=== PATIENT | female | born 1970 | race Caucasian/White ===

== ENCOUNTER 2017-01-21 19:26 | Emergency (ER) | payer BC ==
[~2017-01-21] VITALS: Ht 167.6 cm; Wt 68.0 kg
[2017-01-21 19:34] VITALS: BP 115/72; PULSE 69; RESP 18; TEMP 97.5; O2SAT 100
--- NOTE | 2017-01-21 19:40 | NUR ---
Placed in room 03 . Placed on athletic monitor, blood pressure machine and pulse oximeter. To gown for exam. Side rails up. Report given to CHARLIE Dominguez.
--- NOTE | 2017-01-21 19:45 | NUR ---
Pt states that on thursday she was bucked off her horse on thursday and landed on her R side. Pt has bruising and swelling on the R leg. Pt has been taking motrin for pain. Pain level is 1/10. Pt wants to R/O DVT. Will continue to monitor. No other injuries or complaints mentioned/noted. No distress noted.
--- NOTE | 2017-01-21 19:48 | NUR ---
LARRY oRot at bedside examining patient.
[2017-01-21 20:42] VITALS: BP 115/72; PULSE 68; RESP 18; TEMP 97.5; O2SAT 100
--- NOTE | 2017-01-21 20:42 | NUR ---
Patient given written and verbal discharge instructions and verbalizes understanding. ER MD discussed with patient the results and treatment provided. Patient in stable condition. ID arm band removed. Rx of Motrin given. Patient educated on pain management and to follow up with PMD. Pain Scale 0/10. Opportunity for questions provided and answered.
== END 2017-01-21 20:42 | disposition home or self-care (01) ==
LOC: SED 19:26
DX: S70.01XA Contusion of right hip, initial encounter (principal); S80.01XA Contusion of right knee, initial encounter; Z88.0 Allergy status to penicillin; V80.010A Animal-rider injured by fall from or being thrown from horse in noncollision accident, initial encounter; Y93.52 Activity, horseback riding; Y99.8 Other external cause status; Y92.89 Other specified places as the place of occurrence of the external cause
CPT/HCPCS: 93971; 99284